=== PATIENT | male | born 1960 | race African-American/Black ===

== ENCOUNTER 2016-12-23 10:21 | Emergency (ER) | payer OTHER ==
[2016-12-23 10:30] VITALS: BP 147/102; PULSE 117; TEMP 98.9; BMI 20.2
--- NOTE | 2016-12-23 13:01 | PDOC ---
History of Present Illness - General Chief Complaint: Injury Stated Complaint: FOOT INJURY Time Seen by Provider: 12/23/16 11:53 Past History - Past Medical History Allergies/Adverse Reactions: Allergies Allergy/AdvReac Type Severity Reaction Status Date / Time No Known Allergies Allergy Verified 12/23/16 10:27 COPD: No Other medical history: DENIES. - Suicide/Smoking/Psychosocial Hx Smoking History: Current every day smoker Have you smoked in the past 12 months: Yes Number of Cigarettes Smoked Daily: 4 Information on smoking cessation initiated: No *Physical Exam - Vital Signs Last Vital Signs Temp Pulse Resp BP Pulse Ox 98.9 F 117 H 19 147/102 99 12/23/16 10:27 12/23/16 10:27 12/23/16 10:27 12/23/16 10:27 12/23/16 10:27 ED Treatment Course - RADIOLOGY Radiology Studies Ordered: Category Date Time Status ANKLE & FOOT-LEFT* [RAD] Stat Radiology 12/23/16 11:33 Taken *DC/Admit/Observation/Transfer Diagnosis at time of Disposition: Closed navicular fracture of left ankle Qualifiers: Encounter type: initial encounter Fracture alignment: displaced Qualified Code( s): S92.252A - Displaced fracture of navicular [scaphoid] of left foot, initial encounter for closed fracture - Discharge Dispostion Disposition: HOME Condition at time of disposition: Stable Admit: No - Referrals Referrals: Marcelino Moise MD [Staff Physician] - - Patient Instructions Printed Discharge Instructions: DI for Ankle Fracture Additional Instructions: You broke a bone in your ankle joint called the navicular. You were placed in a splint. Please do not walk on your foot and only use crutches. Ice the foot 5 times a day for 20 minute periods. Take ibuprofen 800mg every 8 hours to reduce the swelling and pain, no to exceed 3,000mg a day. Follow up with ortho tomorrow or Tuesday. A referral has been provided. Return to the ED if you have worsening pain in your feet or toes, fevers, chills , or any changes in your symptoms - Post Discharge Activity Forms/Work/School Notes: Back to Work
== END 2016-12-23 13:34 | disposition home or self-care (01) ==
LOC: JERFT 10:21
PROC: 2W3RX1Z Immobilization of Left Lower Leg using Splint (ICD-10-PCS; principal; 2016-12-23)
DX: S92.252A Displaced fracture of navicular [scaphoid] of left foot, initial encounter for closed fracture (principal); W23.0XXA Caught, crushed, jammed, or pinched between moving objects, initial encounter; Y93.89 Activity, other specified; Y92.89 Other specified places as the place of occurrence of the external cause; Y99.8 Other external cause status; F17.210 Nicotine dependence, cigarettes, uncomplicated
CPT/HCPCS: 73610-TC-LT; 73630-TC-LT; 99281-25